=== PATIENT | female | born 1930 | race Caucasian/White ===

== ENCOUNTER 2017-01-27 17:26 | Inpatient (IN) | payer OTHER ==
[~2017-01-27] VITALS: Ht 1 cm; Wt 69.5 kg
--- NOTE | ~2017-01-27 | CNG ---
[facility] [place] [address] CYTO-NONGYN REPORT PROCEDURE Name: LAWSON MONDRAGON Room #: 205-P DIS IN M.R.#: [id number] Admission: 01/27/17 Date of : [birth year] Discharge: 02/08/17 Report #: [id number] Path Case #: [id number] CYTOPATHOLOGY REPORT COLLECTION DATE: 02/04/2017 RECEIVED DATE: 02/05/2017 SUBMITTING PHYS: Dr. Tee Pablo OTHER PHYS: Dr. Tae Garcia CLINICAL HISTORY: Resp. Distress, Pneumonia, COPD, EXAC, Hyperkalemia SPECIMEN(S) RECEIVED: A.Bronchial wash, NOS * * * * * * * * * * * * FINAL DIAGNOSIS: A. Bronchial wash, NOS: - No malignant cells identified. - Bronchial epithelial cells, alveolar macrophages, and squamous cells present in a background of debris. - FUNGAL ORGANISMS MORPHOLOGICALLY CONSISTENT WITH RAVINDER AND ASPERGILLUS SPECIES ARE PRESENT. COMMENT: Findings are communicated to Dr. Pablo at 4:09 pm on 02/08/17. PATHOLOGIST: Coby Contreras M.D. REPORT ELECTRONICALLY SIGNED BY: Coby Contreras M.D. DATE/TIME: 02/08/2017 16:11 * * * * * * * * * * * * GROSS PATHOLOGY: A. Bronchial wash, NOS: The specimen is submitted unfixed, labeled "Lawson Mondragon". Received by the Cytology Department is 11 mL of cloudy pink tinted fluid. One ThinPrep slide was prepared. (mm 8.) RESTAURANT MGR(S): NADEEN Perry[facility] INITIAL CPT CODE(S): A; 81059 Professional services performed by [facility] at [facility] [address], [place] [address] Technical services performed by [facility] at [address] [place] [address], [address], [place] [address]. [facility] [address] [place] [address] CYTO-NONGYN REPORT PROCEDURE Name: LAWSON MONDRAGON Room #: 205-P DIS IN M.R.#: [id number] Admission: 01/27/17 Date of : [birth year] Discharge: 02/08/17 Report #: [id number] Path Case #: [id number] [facility] [address] [place] [address], [address] [place] [address] PHONE: [phone] DIRECTOR: Amadeo Hooks M.D. * * * END OF REPORT * * *
--- NOTE | ~2017-01-27 | EKG ---
[address] [place] [address] ELECTROCARDIOGRAM REPORT Name: DANA DOMINGUEZ Mike Room #: 219-P ADM IN M.R.#: [id number] Admission: 01/27/17 Attend Phys: Mike Walls Discharge: Date of : [birth year]/16/[birth year] Report #: [id number] THIS REPORT FOR: //name// [facility] ED Test Date: 2017-01-27 Test Time: 17:29:53 Pat Name: DANA DOMINGUEZ Department: Room: 219 Gender: F Semi Automatic Sewing Machine Operator: patrick : 1930 Requested By: Tracy Huffman Order Number: [id number] MD: Edy Gerard Measurements Intervals [place] Rate: 95 P: 58 AK: 187 QRS: -38 QRSD: 119 T: 76 QT: 386 QTc: 486 Interpretive Statements Sinus rhythm Nonspecific IVCD with LAD Compared to ECG 05/29/2016 16:49:50 No significant change was found Electronically Signed On 01-28-2017 8:12:23 CDT by Edy Gerard [email or web address] <ELECTRONICALLY SIGNED> By: Edy Gerard MD, [facility] [id number] Edy Gerard MD, [facility] /EPI
--- NOTE | ~2017-01-27 | 2DMMODE ---
[facility] [address] [place] [address] 2 D/M-MODE ECHOCARDIOGRAM Name: DANA DOMINGUEZ Room #: 219-P ADM IN M.R.#: [id number] Admission: 01/27/17 Attend Phys: Tae Garber Discharge: Date of : [birth year] Date of Service: 01/28/17 1045 Report #: [id number] THIS REPORT FOR: //name// APPROVED REPORT Study performed: 01/28/2017 08:27:48 EXAM: Comprehensive 2D, Doppler, and color-flow Echocardiogram Patient Location: Echo lab Room #: 219 Status: routine Other Information Study Quality: Adequate Indications Congestive Heart Failure Dyspnea Echo Enhancing Agent Indication: Endocardial border delineation Agent(s) / Amount(s) Used: Optison 3 cc 2D Dimensions RVDd: 34.71 mm LVEF(%): 35.89 (>50%) IVSd: 10.36 (7-11mm) LVOT Diam: 18.88 (18-24mm) LVDd: 57.91 mm PWd: 9.83 (7-11mm) Ascending Ao: 40.79 (22-36mm) LVDs: 47.79 (25-40mm) Aortic Root: 26.30 mm IVC: 26.00 mm Shannon's LVEF: 35.89 % Volumes Left Atrial Volume (Systole) Single Plane 4CH: 71.62 mL Single Plane 2CH: 71.27 mL LA ESV Index: 48.00 mL/m2 Aortic Valve AoV Peak Remi.: 1.50 m/s AO Peak Gr.: 8.98 mmHg LVOT Max P.99 mmHg LVOT Max V: 1.12 m/s LUIS EDUARDO Vmax: 2.09 cm2 Mitral Valve E/A Ratio: 1.2 [facility] [place] [address] 2 D/M-MODE ECHOCARDIOGRAM Name: DANA DOMINGUEZ Room #: 219-P [facility] IN M.R.#: [id number] Admission: 01/27/17 Attend Phys: Tae Garber Discharge: Date of : [birth year] Date of Service: 01/28/17 1045 Report #: [id number] MV Decel. Time: 155.74 ms MV E Max Remi.: 1.14 m/s MV A Remi.: 0.99 m/s MV PHT: 45.17 ms IVRT: 86.51 ms Pulmonary Valve PV Peak Remi.: 1.00 m/s PV Peak Gr.: 3.99 mmHg Pulmonary Vein P Vein S: 0.40 m/s P Vein A: 0.26 m/s P Vein D: 0.53 m/s P Vein A Dur.: 96.9 msec P Vein S/D Ratio: 0.75 Tricuspid Valve TR Peak Remi.: 3.14 m/s RAP Estimate: 10.00 mmHg TR Peak Gr.: 39.53 mmHg PA Pressure: 50.00 mmHg Left Ventricle Left ventricle is at the upper limits of normal. There is normal left ventricular wall thickness. Left ventricular ejection fraction is moderately decreased. LVEF is 30-35%. The diastolic function is abnormal. Findings suggest the left atrial pressure is elevated. Right Ventricle The right ventricle is normal size. The right ventricular systolic function is normal. Atria Left atrium is dilated. Right atrium is dilated. Aortic Valve The aortic valve is normal in structure. Aortic valve is calcified. No aortic regurgitation is present. There is no aortic valvular stenosis. Mitral Valve The mitral valve is normal in structure. Moderate mitral regurgitation. No evidence of mitral valve stenosis. Tricuspid Valve The tricuspid valve is normal in structure. There is mild tricuspid regurgitation. The right atrial pressure is estimated at 10 mmHg. There [place] [address] 2 D/M-MODE ECHOCARDIOGRAM Name: DANA DOMINGUEZ Room #: 219-P [facility] IN [facility]#: [id number] Admission: 01/27/17 Attend Phys: Tae Garber Discharge: Date of : [birth year] Date of Service: 01/28/17 1045 Report #: [id number] Pulmonic Valve The pulmonary valve is normal in structure. Trace pulmonic regurgitation. Great Vessels The aortic root is normal in size. Ascending aorta is mildly dilated. IVC is dilated and collapses >50% with inspiration. Pericardium There is no pericardial effusion. <Conclusion> Left ventricle is at the upper limits of normal. Left ventricular ejection fraction is moderately decreased. LVEF is 30-35%. Left atrium is dilated. Right atrium is dilated. The aortic valve is normal in structure. Aortic valve is calcified. No aortic regurgitation is present. There is no aortic valvular stenosis. The mitral valve is normal in structure. Moderate mitral regurgitation. The pulmonary valve is normal in structure. Trace pulmonic regurgitation. Ascending aorta is mildly dilated. <ELECTRONICALLY SIGNED> By: Donte Foss MD 01/28/17 1045 1045 1045 Donte Foss MD /INF
--- NOTE | ~2017-01-27 | D ---
[facility] [place] [address] DISCHARGE SUMMARY Name: DANA DOMINGUEZ Room #: 205-P ADM IN M.R.#: [id number] Admission: 01/27/17 Attend Phys: Mike Walls Discharge: Date of : [birth year] Report #: [id number] THIS REPORT FOR: //name// CC: Tae Hurd Andriy FINAL DIAGNOSES: 1. Acute on chronic hypoxic respiratory failure. 2. Acute chronic obstructive pulmonary disease exacerbation. 3. Acute on chronic systolic congestive heart failure. HOSPITAL COURSE: The patient was admitted with shortness of breath. She was treated for combined factors of heart failure and COPD exacerbation. She also had acute on chronic respiratory failure. She required BiPAP intermittently during the course of her stay. She was followed by the pulmonary service. Echocardiogram revealed depressed LV function. She had some hyponatremia due to diuretics which were discontinued. Despite treatments with IV steroids and antibiotics along with respiratory treatments and BiPAP with high flow oxygen, she was not improving. I discussed with her daughter that it appears this is terminal situation and she has not responded to usual treatment. Family does not want any further aggressive treatment and have discussed palliative care with hospice services amongst themselves. It appears the pulmonary service feel this is palliative care situation as well. PHYSICAL EXAMINATION: GENERAL: On the day of discharge, she was marginally arousable. VITAL SIGNS: Stable. LUNGS: Had course breath sounds throughout, diminished at the bases. HEART: Had regular sounds. ABDOMEN: Soft. EXTREMITIES: Showed no edema. DISPOSITION: Arrangements are being made for her to transfer back to [facility] with hospice care services. I minimized her medicines and will provide Ativan as needed for anxiety and morphine liquid sublingual as needed for shortness of breath. DNR status to continue. <ELECTRONICALLY SIGNED> By: Asa Baker MD 02/08/17 1213 1010 1200 Asa Baker MD /nt
--- NOTE | ~2017-01-27 | EKG ---
[place] [address] [facility] [place] [address] ELECTROCARDIOGRAM REPORT Name: DOMINGUEZ,DANA Mike Room #: 219-P ADM IN M.R.#: [id number] Admission: 01/27/17 Attend Phys: Mike Walls Discharge: Date of : [birth year] Report #: [id number] THIS REPORT FOR: //name// [facility] Test Date: 2017-01-29 Test Time: 17:12:06 Pat Name: DANA DOMINGUEZ Department: Room: 219 P Gender: F Dental Financial Coordinator: Mike ESPINAL : 1930 Requested By: Asa Baker Order Number: [id number] MD: Edy Gerard Measurements Intervals [place] Rate: 115 P: ID: QRS: -38 QRSD: 123 T: 106 QT: 355 QTc: 491 Interpretive Statements Atrial fibrillation Nonspecific IVCD with LAD LVH with secondary repolarization abnormality Baseline wander in lead(s) V2 Compared to ECG 01/27/2017 17:29:53 Left ventricular hypertrophy now present Early repolarization now present Sinus rhythm no longer present Electronically Signed On 02-01-2017 8:32:08 CDT by Edy Gerard [email or web address] <ELECTRONICALLY SIGNED> By: Edy Gerard MD, [facility] 02/01/17 0832 171 171 Edy Gerard MD, [facility] /EPI
--- NOTE | ~2017-01-27 | H ---
[facility] [place] [address] HISTORY AND PHYSICAL Name: DANA DOMINGUEZ Room #: 219-P [facility] IN M.R.#: [id number] Admission: 01/27/17 Attend Phys: Mike Walls Discharge: Date of : [birth year] Report #: [id number] THIS REPORT FOR: //name// CC: Tae Hurd Andriy DATE OF SERVICE: 01/27/2017 CHIEF COMPLAINT: Shortness of breath. HISTORY OF PRESENT ILLNESS: The patient is an 87-year-old female [facility], sent to the Emergency Room with shortness of breath. Said over the last day or 2, she has had a congested cough and more short of breath that was seemed worse, especially when she was lying down. She had no chest pain or fever or chills reported. She had some chronic headaches and some shoulder pain, which has been a chronic issue. She does wear oxygen at home and uses series of inhalers. PAST MEDICAL HISTORY: Hypothyroid, COPD, chronic kidney disease stage 3, GERD, diverticulosis, history of a left shoulder fracture 2007, hypertension, atrial fibrillation, osteoporosis, depression, insomnia, anemia, hypocalcemia, neuropathy, thoracic aortic aneurysm. PAST SURGICAL HISTORY: She had a cholecystectomy, colon biopsy, hysterectomy, partial thyroidectomy. FAMILY HISTORY: Unknown. SOCIAL HISTORY: She has been living at the [facility] living at [facility] the [facility] for several years. No chronic alcohol or tobacco use, but remote smoking. ALLERGIES: PENICILLIN, CIPRO, SULFA, TRAMADOL. MEDICATIONS: Amlodipine, Tylenol, Mucinex, calcium, thyroid, aspirin, calcitriol, Toprol, Symbicort, DuoNeb, gabapentin, Protonix, meloxicam. REVIEW OF SYSTEMS: She complains of a congested cough. Denies headache, chest pain, shortness of breath, abdominal pain, nausea, vomiting, diarrhea, constipation, dysuria, syncope. PHYSICAL EXAMINATION: VITAL SIGNS: Temperature 36.9, pulse 94, respirations 20, blood pressure 109/68. GENERAL: She is awake and alert, sitting up at the bedside chair on [address] [facility] [address] [place] [address] HISTORY AND PHYSICAL Name: DANA DOMINGUEZ Room #: 219-P [facility] IN ..#: [id number] Admission: 01/27/17 Attend Phys: Mike Walls Discharge: Date of : [birth year] Report #: [id number] HEAD AND NECK: Unremarkable. LUNGS: She has coarse expiratory rhonchi. HEART: Regular, no murmur. ABDOMEN: Soft, normoactive bowel sounds. EXTREMITIES: No edema. NEUROLOGIC: Motor strength 4/5 throughout. LABORATORY DATA: Chest x-ray showed pulmonary edema. Her BNP was 4100. Echocardiogram has revealed left ventricular ejection fraction 30%. ASSESSMENT: 1. Acute on chronic systolic congestive heart failure. 2. Bronchitis. 3. Chronic obstructive pulmonary disease exacerbation. 4. Hypertension. 5. History of atrial fibrillation. 6. Senile debility age 87. PLAN: Medical treatment for now including diuretics along with antibiotics, bronchodilators, steroids and supplemental oxygen, Lovenox for DVT prophylaxis. <ELECTRONICALLY SIGNED> By: Asa Baker MD 01/29/17 0839 1057 1131 Asa Baker MD /nt
[~2017-01-27 17:26] MED LIST: ACETAMINOPHEN-1 EAC1 PO; ACIDOPHILUS CA1 EACH PO; ADVAIR HFA 230M12 GM; ALBUTEROL2.5 MG/0.5 INH; AMLODIPINE BESYL5 MG PO; ANTACID500 MG PO; ARTIFICIAL TEAR15 M1 OPHTHALMIC; ASPIR 8181 MG PO; ASPIRIN81 M2 PO; AYR SALINE NASA14 GM TOP; BISAC-EVAC10 MG RECTAL; CAPSAICIN60 GM; CEFTIN 250 MG250 MG PO; CEPACOL SORE T1 EAC7 PO; CEPACOL SORE T1 EAC8 PO; COLACE100 MG PO; CYMBALTA60 MG PO; DEBROX; DEEP SEA NASAL44 M1 NASAL; DUONEB 2.5-0.5 M3 ML INH; EAR DROPS15 ML OTIC; ENSURE COMPLET237 ML PO; FENTANYL PA12 MCG/H1 TRANSDERM; FENTANYL PA25 MCG/HR TD; FENTANYL PA25 MCG/HR TRANSDERM; FEROSUL325 M1 PO; FLONASE 0.05%50 MCG NASAL; GABAPENTIN 100100 MG PO; GAS RELIEF 8080 MG PO; GENTAMICIN 0.1%15 G2 TOP; HYDROCODONE-APA1 TA1 PO; IBUPROFEN 400400 M1 PO; IBUPROFEN 400400 M2 PO; IPRAT-ALBUT 0.5-3 ML INH; IPRATR-ALBUTEROL INH; KEFLEX500 MG PO; KLOR-CON 10 ER10 MEQ PO; KLOR-CON 1010 MEQ PO; LASIX 20 MG TAB20 MG PO; LEVAQUIN 500 M500 M1 PO; LEVOTHYROXIN0.125 M1 PO; LEVOTHYROXIN0.175 MG PO; LEVOTHYROXINE 0.1 MG PO; LIDOCAINE 22 %/30 GM TOP; LIQUITEARS; LISINOPRIL10 MG PO; LOPERAMIDE 2 MG2 M1 PO; LOPRESSOR25 PO; LOTRISONE CREAM15 GM TOP; MAGNESIUM400 M1 PO; MAGOX 400400 MG PO; MELATONIN1 MG PO; MEROPENEM500 MG IV; MILK OF MA2400 MG/10 PO; MIRALAX17 GM PO; MIRALAX255 GM PO; MOBIC7.5 M1 PO; MUCINEX TA600 MG/TA2 PO; NATURAL LUTEIN20 MG PO; NATURE'S TEARS15 M1 OPHTHALMIC; NEURONTIN 300300 M1 PO; NITRO-BID30 GM TOP; NORCO 5-325 TA1 EACH PO; NORVASC5 MG PO; ONDANSETRON HCL4 M2 PO; OYSTER SHELL 51 EACH PO; PEG3350510 GM PO; PEPCID20 MG PO; PREDNISONE 1 MG1 M1 PO; PREDNISONE 10 M10 MG PO; PREDNISONE PO; PRO-STAT LIQUID30 M1 PO; PROTONIX 20 MG20 M1 PO; PROTONIX40 M1 PO; REMERON15 MG PO; RISPERDAL0.25 MG PO; RISPERDAL0.5 MG PO; ROCALTROL0.25 MCG PO; ROCALTROL0.5 MCG PO; SALINE NASAL SP30 ML NASAL; SENNA S TABLET1 EACH PO; SENOKOT-S1 TA1 PO; SILTUSSIN100 MG/5 M PO; SILVADENE20 GM TOP; SPIRIVA INH; SPIRIVA18 MCG; SYMBICORT80 MCG/4.1 INH; SYMBICORT80 MCG/4.5 INH; TEARS NATURALE1 EACH OPHTHALMIC; TESSALON PERLE100 M1 PO; TESSALON PERLE100 MG PO; TOPROL XL25 MG PO; TUMS PO; TYLENOL325 MG PO; VENTOLIN HFA 1818 GM; VITAMIN D31000 UNI2 PO; VITAMINC500; VITAMINC500 PO; VOLTAREN GEL 1100 G1; VOLTAREN GEL 1100 G1 TOP; VOLTAREN GEL 1100 G2 TOP; ZINC50 MG PO; ZOFRAN ODT4 MG DISSOLVE; ZOFRAN4 MG PO; [UNRECOGNIZED DRUG - OTHER] PO; [UNRECOGNIZED DRUG - OTHER] PO
[2017-01-27 17:27] VITALS: BP 141/91
[2017-01-27 17:59] LABS: HEMATOCRIT 34.1 % (37.0-47.0); HEMOGLOBIN 11.2 gm/dL (12.0-15.0); MCH 29.4 pg (26.0-34.0); MCV 89.3 fL (80.0-100.0); PLATELET COUNT 114 thou/uL (150-400); RBC 3.82 mil/uL (4.20-5.00); RDW 14.5 % (10.5-14.5); WBC 8.2 thou/uL (4.0-11.0)
[2017-01-27 18:01] LABS: MANUAL DIFF YES
[2017-01-27 18:07] LABS: CALCIUM 9.3 mg/dL (8.5-10.1); CREATININE 1.4 mg/dL (0.6-1.0); POTASSIUM 5.8 mmol/L (3.5-5.1)
[2017-01-27 18:29] LABS: ABSOLUTE NEUTROPHILS 5.4 thou/uL (1.4-8.2); TOTAL CELL COUNT 100
[2017-01-27 18:30] LABS: ANISOCYTOSIS 1+; SCHISTOCYTES FEW
[2017-01-27 18:31] LABS: MICROCYTES SLIGHT
[2017-01-27 18:52] VITALS: BP 124/88
[2017-01-27 20:30] VITALS: BP 111/65
[2017-01-27 21:21] VITALS: BP 111/71
[2017-01-27] MEDS ORDERED: TYLENOL325 MG PO (21:55)
[2017-01-27] MEDS ORDERED: BISACODYL SUPP10 MG RECTAL (21:58)
[2017-01-27] MEDS ORDERED: BUSPIRONE HCL10 MG PO (22:12)
[2017-01-27] MEDS ORDERED: BUSPIRONE HCL10 MG (22:13)
[2017-01-27] MEDS ORDERED: CEPACOL SORE T1 EAC7 MM (22:17)
[2017-01-27] MEDS ORDERED: CAPSAICIN42.5 GM TP (22:28)
[2017-01-27] MEDS ORDERED: COLACE100 MG PO (22:29)
[2017-01-27] MEDS ORDERED: DOK PLUS TABLE1 EACH PO ×2 (22:33→22:34)
[2017-01-27] MEDS ORDERED: IBUPROFEN 200200 M1 PO (22:38)
[2017-01-27] MEDS ORDERED: MELATONIN1 MG PO (22:45)
[2017-01-27] MEDS ORDERED: LOPERAMIDE 2 MG2 M1 PO (22:51)
[2017-01-28] VITALS (7 sets, daily range): BP systolic 108–153; BP diastolic 68–84
[2017-01-29 03:39] VITALS: BP 108/77
[2017-01-29 04:30] LABS: CALCIUM 8.5 mg/dL (8.5-10.1); CREATININE 1.4 mg/dL (0.6-1.0); POTASSIUM 4.4 mmol/L (3.5-5.1)
[2017-01-29 04:50] LABS: HEMATOCRIT 29.9 % (37.0-47.0); HEMOGLOBIN 10.2 gm/dL (12.0-15.0); MCH 29.6 pg (26.0-34.0); MCHC 34.1 g/dL (28.0-37.0); MCV 86.8 fL (80.0-100.0); RBC 3.44 mil/uL (4.20-5.00); RDW 13.7 % (10.5-14.5); WBC 3.4 thou/uL (4.0-11.0)
[2017-01-29 09:49] VITALS: BP 106/69
[2017-01-29 19:10] VITALS: BP 130/86
[2017-01-29 23:21] VITALS: BP 136/76
[2017-01-30 05:01] VITALS: BP 120/68
[2017-01-30 05:24] LABS: HEMOGLOBIN 10.6 gm/dL (12.0-15.0); MCH 29.5 pg (26.0-34.0); MCHC 34.2 g/dL (28.0-37.0); MCV 86.3 fL (80.0-100.0); RBC 3.6 mil/uL (4.20-5.00)
[2017-01-30 05:30] LABS: CALCIUM 8.8 mg/dL (8.5-10.1); CREATININE 1.7 mg/dL (0.6-1.0); POTASSIUM 4.5 mmol/L (3.5-5.1)
[2017-01-30 08:43] VITALS: BP 147/93
[2017-01-30 11:58] VITALS: BP 125/81
[2017-01-30 15:53] VITALS: BP 119/87
[2017-01-30 20:16] VITALS: BP 113/83
[2017-01-31 03:46] VITALS: BP 130/79
[2017-01-31 05:23] LABS: CALCIUM 8.7 mg/dL (8.5-10.1); POTASSIUM 4.9 mmol/L (3.5-5.1)
[2017-01-31 08:00] VITALS: BP 123/83
[2017-01-31 11:48] LABS: ABG SAMPLE TYPE ARTERIAL; BE(vivo) 7.5 mmol/L (-2 to +3); HCO3 32.9 mmol/L (22.0-26.0); LACTATE 2.85 mmol/L (0.5-2.0); O2(CT) 15.4 mL/dL (15.0-23.0); O2Hb 94.9 % (92.0-98.0); PCO2 50.5 mmHg (35.0-45.0); PO2 83.7 mmHg (80.0-100.0); STICK SITE R.RADIAL; pH 7.432 (7.360-7.450); sO2 96.4 % (92.0-98.0); tCO2 34.5 mmol/L (24.0-30.0)
[2017-01-31 12:00] VITALS: BP 141/115
[2017-01-31 15:34] LABS: HEMATOCRIT 31.8 % (37.0-47.0); HEMOGLOBIN 10.9 gm/dL (12.0-15.0); MCH 29.6 pg (26.0-34.0); MCHC 34.2 g/dL (28.0-37.0); MCV 86.4 fL (80.0-100.0); PLATELET COUNT 151 thou/uL (150-400); RBC 3.68 mil/uL (4.20-5.00); RDW 13.6 % (10.5-14.5)
[2017-01-31 15:43] LABS: MANUAL DIFF YES
[2017-01-31 16:00] VITALS: BP 96/50
[2017-01-31 16:19] LABS: ABSOLUTE NEUTROPHILS 4.5 thou/uL (1.4-8.2); ANISOCYTOSIS 1+; TOTAL CELL COUNT 100
[2017-01-31 20:28] VITALS: BP 168/96
[2017-01-31 20:41] VITALS: BP 163/89
[2017-02-01] VITALS (7 sets, daily range): BP systolic 111–140; BP diastolic 69–92
[2017-02-01 04:05] LABS: CALCIUM 8.4 mg/dL (8.5-10.1); CREATININE 1.8 mg/dL (0.6-1.0); POTASSIUM 4.3 mmol/L (3.5-5.1)
[2017-02-02 04:44] VITALS: BP 129/98
[2017-02-02 07:37] VITALS: BP 106/69
[2017-02-02 10:09] LABS: HEMATOCRIT 29.3 % (37.0-47.0); HEMOGLOBIN 10.3 gm/dL (12.0-15.0); MCH 30.1 pg (26.0-34.0); MCHC 35.2 g/dL (28.0-37.0); MCV 85.6 fL (80.0-100.0); RBC 3.43 mil/uL (4.20-5.00); RDW 13.6 % (10.5-14.5); WBC 7.3 thou/uL (4.0-11.0)
[2017-02-02 10:17] LABS: CREATININE 1.9 mg/dL (0.6-1.0); POTASSIUM 3.9 mmol/L (3.5-5.1)
[2017-02-02 12:00] VITALS: BP 107/62
[2017-02-02 16:00] VITALS: BP 99/65
[2017-02-02 20:51] VITALS: BP 106/65
[2017-02-03 00:57] VITALS: BP 148/83
[2017-02-03 03:26] VITALS: BP 108/74
[2017-02-03 11:36] VITALS: BP 102/64
[2017-02-03 16:16] VITALS: BP 112/70
[2017-02-03 20:00] VITALS: BP 105/85
[2017-02-04 03:37] VITALS: BP 104/68
[2017-02-04 05:30] LABS: HEMATOCRIT 30.4 % (37.0-47.0); HEMOGLOBIN 10.6 gm/dL (12.0-15.0); MCH 29.9 pg (26.0-34.0); MCHC 34.9 g/dL (28.0-37.0); MCV 85.7 fL (80.0-100.0); RBC 3.54 mil/uL (4.20-5.00); RDW 13.6 % (10.5-14.5); WBC 9.5 thou/uL (4.0-11.0)
[2017-02-04 05:39] LABS: CALCIUM 7.9 mg/dL (8.5-10.1); CREATININE 1.4 mg/dL (0.6-1.0); POTASSIUM 4.3 mmol/L (3.5-5.1)
[2017-02-04 07:25] VITALS: BP 107/73
[2017-02-04 12:30] VITALS: BP 117/73
[2017-02-04 16:10] VITALS: BP 116/80
[2017-02-05 05:46] VITALS: BP 129/85
[2017-02-05 08:00] VITALS: BP 106/77
[2017-02-05 11:35] VITALS: BP 109/69
[2017-02-05 16:35] VITALS: BP 111/64
[2017-02-05 20:03] VITALS: BP 119/74
[2017-02-06 04:57] VITALS: BP 128/82
[2017-02-06 08:30] VITALS: BP 142/92
[2017-02-06 11:35] VITALS: BP 104/61
[2017-02-06 16:30] VITALS: BP 121/80
[2017-02-06 19:47] VITALS: BP 162/91
[2017-02-07 05:41] VITALS: BP 161/105
[2017-02-07 07:34] VITALS: BP 115/83
[2017-02-07 15:20] VITALS: BP 119/76
[2017-02-07 16:31] LABS: HEMATOCRIT 28.7 % (37.0-47.0); HEMOGLOBIN 9.7 gm/dL (12.0-15.0); MCH 29.7 pg (26.0-34.0); MCHC 33.7 g/dL (28.0-37.0); MCV 87.9 fL (80.0-100.0); RBC 3.26 mil/uL (4.20-5.00); RDW 13.9 % (10.5-14.5); WBC 17.3 thou/uL (4.0-11.0)
[2017-02-07 16:40] LABS: CALCIUM 7.9 mg/dL (8.5-10.1); CREATININE 1.2 mg/dL (0.6-1.0); POTASSIUM 4.5 mmol/L (3.5-5.1)
[2017-02-07 19:43] VITALS: BP 121/83
[2017-02-08] MEDS ORDERED: ATIVAN0.5 MG PO (08:46)
[2017-02-08] MEDS ORDERED: PREDNISONE 20 M20 MG PO (08:46)
[2017-02-08] MEDS ORDERED: MSL20MG/ML PO (08:46)
[2017-02-08 09:15] VITALS: BP 109/50
[2017-02-08 09:55] VITALS: BP 109/50
== END 2017-02-08 12:20 | disposition hospice, home (50) | DRG 291 ==
LOC: ER 17:26 → 2N 18:39 → EROBS 18:39 → 2N 20:57
PROVIDERS: Emergency Medicine; Internal Medicine; Internal Medicine Geriatric Medicine
DX: I13.0 Hypertensive heart and chronic kidney disease with heart failure and stage 1 through stage 4 chronic kidney disease, or unspecified chronic kidney disease (principal); I50.23 Acute on chronic systolic (congestive) heart failure; J96.21 Acute and chronic respiratory failure with hypoxia; J15.212 Pneumonia due to Methicillin resistant Staphylococcus aureus; R65.11 Systemic inflammatory response syndrome (SIRS) of non-infectious origin with acute organ dysfunction; J44.1 Chronic obstructive pulmonary disease with (acute) exacerbation; J98.11 Atelectasis; N17.9 Acute kidney failure, unspecified; J44.0 Chronic obstructive pulmonary disease with (acute) lower respiratory infection; E87.1 Hypo-osmolality and hyponatremia; T17.890A Other foreign object in other parts of respiratory tract causing asphyxiation, initial encounter; F41.9 Anxiety disorder, unspecified; E89.0 Postprocedural hypothyroidism; N18.3 Chronic kidney disease, stage 3 (moderate); K21.9 Gastro-esophageal reflux disease without esophagitis; T50.2X5A Adverse effect of carbonic-anhydrase inhibitors, benzothiadiazides and other diuretics, initial encounter; K57.90 Diverticulosis of intestine, part unspecified, without perforation or abscess without bleeding; I48.91 Unspecified atrial fibrillation; M81.0 Age-related osteoporosis without current pathological fracture; F32.9 Major depressive disorder, single episode, unspecified; R51 Headache; R29.6 Repeated falls; R54 Age-related physical debility; Z53.29 Procedure and treatment not carried out because of patient's decision for other reasons; Z96.651 Presence of right artificial knee joint; Z66 Do not resuscitate; Z88.1 Allergy status to other antibiotic agents; Z88.2 Allergy status to sulfonamides; Z88.6 Allergy status to analgesic agent; Z87.891 Personal history of nicotine dependence; Z79.82 Long term (current) use of aspirin; Z79.899 Other long term (current) drug therapy; Z90.710 Acquired absence of both cervix and uterus; Z90.49 Acquired absence of other specified parts of digestive tract; Z99.81 Dependence on supplemental oxygen; X58.XXXA Exposure to other specified factors, initial encounter; Y93.89 Activity, other specified; Y92.89 Other specified places as the place of occurrence of the external cause; Y99.8 Other external cause status
CPT/HCPCS: 10081